=== PATIENT | female | born 1965 | race Caucasian/White ===

== ENCOUNTER → 2016-06-20 | Day surgery (SDC) | payer BC ==
[~2016-06-20] MED LIST: CHANTIX PO; DOXEPIN HCL100 M1 PO; FLEXERIL10 MG PO; KLONOPIN0.5 M3 PO; LEXAPRO20 MG PO; NABUMETONE PO
--- NOTE | ~2016-06-20 | OR ---
Unit #: [id number]: [id number] Patient: LADARIUS RATLIFF [id number] [address] [address] [id number] MR#: [id number] NAME: LADARIUS RATLIFF ROOM: Date of Procedure: 06/20/2016 Admission Date: 06/20/2016 Surgeon: Elio Davis M.D. : 1965 Attending Physician: Elio Davis M.D. Primary Care Physician: Primary Care Physician No OPERATIVE REPORT PREOPERATIVE DIAGNOSIS Screening colonoscopy. POSTOPERATIVE DIAGNOSIS Colon polyps x3. PROCEDURES PERFORMED 1. Colonoscopy to cecum. 2. Polypectomy x3. One in the ascending colon measuring 0.2 cm removed with snare electrocautery. 3. 0.1 cm polyp in sigmoid colon removed via cold biopsy. 4. Rectal polyp removed via cold biopsy. ANESTHESIA IV sedation. COMPLICATIONS None. INDICATIONS FOR PROCEDURE The patient is a 51-year-old, who presents for screening colonoscopy. DESCRIPTION OF PROCEDURE The patient was taken to the operating theater and placed in left lateral decubitus position. IV sedation was initiated. Digital rectal exam was normal. Colonoscope was then passed under direct vision and navigated to cecum. The patient had excellent prep. I identified three polyps as mentioned. The first in the ascending colon was 0.2 cm. The other two were 0.1. These were removed in their entirety, one with snare and two with cold biopsy. Hemostasis was adequate. I saw no other abnormalities. There were no diverticula or colitis. She tolerated the procedure well and sent to the recovery room in good condition. PLAN We will follow up on her biopsy results. Dictated by... Hilda Murphy/martir Unit #: [id number] #: [id number] Patient: LADARIUS RATLIFF TD: 06/20/2016 12:43 JOB #: [id number] OPERATIVE REPORT X Elio Davis MD X PROCEDURE OPERATIVE NOTE
== END | disposition home or self-care (01) ==
LOC: COPS 10:35
PROVIDERS: Surgery
PROC: 0DBK8ZX Excision of Ascending Colon, Via Natural or Artificial Opening Endoscopic, Diagnostic (ICD-10-PCS; principal; 2016-06-20 12:30)
PROC: 0DBP8ZX Excision of Rectum, Via Natural or Artificial Opening Endoscopic, Diagnostic (ICD-10-PCS; 2016-06-20 12:30)
PROC: 0DBN8ZX Excision of Sigmoid Colon, Via Natural or Artificial Opening Endoscopic, Diagnostic (ICD-10-PCS; 2016-06-20 12:30)
DX: Z12.11 Encounter for screening for malignant neoplasm of colon (principal); K63.5 Polyp of colon; K62.1 Rectal polyp; Z83.71 Family history of colonic polyps; M54.30 Sciatica, unspecified side; Z79.899 Other long term (current) drug therapy; F32.9 Major depressive disorder, single episode, unspecified; F41.9 Anxiety disorder, unspecified; Z80.52 Family history of malignant neoplasm of bladder; Z80.1 Family history of malignant neoplasm of trachea, bronchus and lung; Z84.89 Family history of other specified conditions; Z88.0 Allergy status to penicillin
CPT/HCPCS: 84703; 88305; J2250